=== PATIENT | male | born 1970 | race Caucasian/White ===

== ENCOUNTER 2022-09-02 23:42 | Emergency (ER) | payer OTHER ==
[~2022-09-02] VITALS: Ht 182.8 cm; Wt 64.9 kg
[~2022-09-02 23:42] MED LIST: NAPROSYN500 MG PO; ROBAXIN500 MG PO; SEPTRA DS 800 M1 TAB IV
[2022-09-03 00:11] LABS: BASO # 0.1 10*3/uL (0.0-0.1); EOS # 0.2 10*3/uL (0.0-0.4); EOS % 3.7 % (1.0-4.0); LYMPH # 2.2 10*3/uL (1.3-4.4); LYMPH % 40.1 % (27.0-41.0); MEAN CELL VOLUME 97.6 fl (80.0-94.0); MEAN CORPUSCULAR HGB 32.2 pg (27.0-31.0); MEAN PLATELET VOLUME 10.1 fl (9.6-12.3); MONO # 0.2 10*3/uL (0.1-1.0); MONO % 4.1 % (3.0-9.0); NEUT # 2.6 10*3/uL (2.3-7.9); NEUT % 48.6 % (47.0-73.0); PLATELET COUNT AUTOMATED 235 10*3/uL (130-400); RED BLOOD COUNT 4.51 10*6/uL (4.50-5.90); RED CELL DISTRI WIDTH 13.2 % (0-14.5); WHITE BLOOD COUNT 5.4 10*3/uL (4.8-10.8)
[2022-09-03 00:27] LABS: ALKALINE PHOSPHATASE 54 U/L (46-116); BUN 7 mg/dl (9-23); CHLORIDE 102 mmol/L (98-107); POTASSIUM 4.2 mmol/L (3.4-5.1); SGPT/ALT 16 U/L (10-49); TOTAL PROTEIN 7.5 gm/dL (6.0-8.0)
== END 2022-09-03 02:38 | disposition home or self-care (01) ==
LOC: ED 23:42
PROVIDERS: Internal Medicine
DX: T50.901A Poisoning by unspecified drugs, medicaments and biological substances, accidental (unintentional), initial encounter (principal); F10.929 Alcohol use, unspecified with intoxication, unspecified; Y90.9 Presence of alcohol in blood, level not specified

== ENCOUNTER 2022-09-28 04:04 | Emergency (ER) | payer OTHER ==
[~2022-09-28] VITALS: Ht 175.2 cm; Wt 58.1 kg
== END 2022-09-28 04:49 | disposition left against medical advice (07) ==
LOC: ED 04:04
DX: R06.02 Shortness of breath (principal); J45.909 Unspecified asthma, uncomplicated; Z98.890 Other specified postprocedural states; F10.10 Alcohol abuse, uncomplicated; Z87.891 Personal history of nicotine dependence

== ENCOUNTER 2024-09-19 19:19 | Emergency (ER) | payer OTHER ==
[~2024-09-19] VITALS: Ht 175.3 cm; Wt 59.0 kg
[2024-09-19] MEDS ORDERED: methylPREDNISolone sod succ 125 MG VIAL IV ONE (19:50)
[2024-09-19 20:10] LABS: MEAN CELL VOLUME 91.1 fl (80.0-94.0); MEAN CORPUSCULAR HGB 30.8 pg (27.0-31.0); MEAN CORPUSCULAR HGB CONC 33.8 g/dl (33.0-37.0); MEAN PLATELET VOLUME 10.5 fl (9.6-12.3); PLATELET COUNT AUTOMATED 209 10*3/uL (130-400); RED BLOOD COUNT 4.39 10*6/uL (4.50-5.90); RED CELL DISTRI WIDTH 13.1 % (0-14.5); WHITE BLOOD COUNT 13.2 10*3/uL (4.8-10.8)
[2024-09-19 20:22] LABS: MANUAL DIFF REFLEX YES
[2024-09-19 20:36] LABS: BUN 18 mg/dl (9-23); CHLORIDE 92 mmol/L (98-107); POTASSIUM 3.6 mmol/L (3.4-5.1)
[2024-09-19 20:49] LABS: ATYPICAL LYMPHS 1 % (0-0); BURR CELLS FEW; PLATELET SUFFICIENCY NORMAL (NORMAL); TOTAL CELLS COUNTED 100 #CELLS; TOXIC GRANULATION SLIGHT
[2024-09-19] MEDS ORDERED: AZITHROMYCIN 250 MG TAB PO ONE (21:40)
[2024-09-19] MEDS ORDERED: Albuterol Sulf/Ipratropium 3 ML VIAL NEB ONE (21:40)
[2024-09-19] MEDS ORDERED: MEDROL DOSEPAK4 MG PO (21:41)
[2024-09-19] MEDS ORDERED: AVPAK AZITHROM250 MG PO (21:41)
== END 2024-09-19 22:17 | disposition home or self-care (01) ==
LOC: ED 19:19
PROVIDERS: Internal Medicine
DX: J40 Bronchitis, not specified as acute or chronic (principal); F17.200 Nicotine dependence, unspecified, uncomplicated; Z98.890 Other specified postprocedural states; Z20.822 Contact with and (suspected) exposure to COVID-19